=== PATIENT | female | born 1990 | race African-American/Black ===

== ENCOUNTER 2019-01-21 13:25 | Emergency (ER) | payer SELFPAY ==
[~2019-01-21] VITALS: Ht 180.3 cm; Wt 77.3 kg
[~2019-01-21 13:25] MED LIST: ALBUTEROL0.09 MG/A1 IH; AMOXICILLIN 50500 MG PO; BIRTH CONTROL; NEXIUM 20MG CAP20 MG PO; NO HOME MEDICATIONS; PHENERGAN W/CO120 ML PO; ZANTAC 150150 MG PO
[2019-01-21 13:35] VITALS: BP 117/56
[2019-01-21 13:48] VITALS: TEMP 96.9
[2019-01-21 14:16] LABS: COLLECTION METHOD CLEAN CATCH
[2019-01-21 14:25] LABS: MUCOUS Present /lpf; PH 5 (5-8); URINE APPEARANCE Cloudy; URINE BACTERIA None Seen /hpf; URINE BILIRUBIN Negative (NEGATIVE); URINE BLOOD Negative (NEGATIVE); URINE COLOR Yellow; URINE GLUCOSE Negative (NEGATIVE); URINE KETONE Trace (NEGATIVE); URINE LEUKOCYTE ESTERASE Trace (NEGATIVE); URINE NITRATE Negative (NEGATIVE); URINE PROTEIN(semi-quant) 2+ (NEGATIVE); URINE UROBILINOGEN Negative (NEGATIVE)
[2019-01-21 14:33] LABS: TRICYCLIC ANTIDEPRESS URINE NEGATIVE
[2019-01-21 14:51] LABS: BASO % 0.2 % (0.0-2.0); EOS # 0.1 (0.0-0.7); EOS % 1.9 % (0-4.0); GRAN # 2.7 (1.4-6.5); HEMATOCRIT 41.5 % (37.0-47.0); HEMOGLOBIN 13.4 g/dl (12.5-16.0); LYMPH # 1.2 (1.2-3.4); LYMPH % 28.1 % (20.0-51.0); MEAN CELL VOLUME 89 fl (80.0-100.0); MEAN CORPUSCULAR HEMOGLOBIN 29 pg (27.0-31.0); MEAN CORPUSCULAR HGB CONC 32 g/dl (33.0-37.0); MEAN PLATELET VOLUME 9.4 fl (7.4-10.4); MONO # 0.3 (0.1-0.6); MONO % 6.8 % (1.7-9.3); PLATELET COUNT 269 K/mm3 (130-400); RED BLOOD COUNT 4.69 M/mm3 (4.10-5.30); REDCELL DISTRIBUTION WIDTH-CV 14.7 % (11.5-14.5)
[2019-01-21 14:58] LABS: ALANINE AMINOTRANSFERASE 16 U/L (9-52); ALBUMIN 3.9 gm/dL (3.5-5.0); ALKALINE PHOSPHATASE 79 U/L (50-136); ANION GAP 8 mmol/L (7-16); AST,SGOT 23 U/L (15-37); BILIRUBIN,TOTAL 0.5 mg/dL (0.0-1.0); BLOOD UREA NITROGEN 12 mg/dL (7-17); CALCIUM 9.1 mg/dL (8.4-10.2); CARBON DIOXIDE 27 mmol/L (22-30); CHLORIDE 105 mmol/L (98-107); CREATININE, serum 0.85 (0.52-1.25); GLUCOSE 85 mg/dL (74-106); POTASSIUM 3.9 mmol/L (3.4-5.0); SODIUM 141 mmol/L (137-145); TOTAL PROTEIN 7.4 gm/dL (6.4-8.2)
[2019-01-21 15:00] LABS: C-REACTIVE PROTEIN < 0.5 mg/dL (0.0-0.9)
[2019-01-21 17:00] VITALS: PULSE 64
== END 2019-01-21 17:00 | disposition home or self-care (01) ==
LOC: COL.ER 13:25
PROVIDERS: Physician Assistant
DX: L50.9 Urticaria, unspecified (principal); F17.210 Nicotine dependence, cigarettes, uncomplicated; F15.10 Other stimulant abuse, uncomplicated
CPT/HCPCS: J7030

== ENCOUNTER 2019-09-26 16:45 | Emergency (ER) | payer SELFPAY ==
[~2019-09-26] VITALS: Ht 177.8 cm; Wt 81.8 kg
[2019-09-26 17:05] VITALS: BP 128/70
[2019-09-26] MEDS ORDERED: TAMIFLU 75MG75 MG PO (20:03)
[2019-09-26 20:13] VITALS: PULSE 107; TEMP 98.9
== END 2019-09-26 20:21 | disposition home or self-care (01) ==
LOC: COL.ER 16:45
DX: J10.1 Influenza due to other identified influenza virus with other respiratory manifestations (principal); F17.210 Nicotine dependence, cigarettes, uncomplicated

== ENCOUNTER 2020-01-17 23:10 | Emergency (ER) | payer SELFPAY ==
[~2020-01-17] VITALS: Ht 177.8 cm; Wt 79.5 kg
[~2020-01-17 23:10] MED LIST changes: +TAMIFLU 75MG75 MG PO
[2020-01-18 01:38] VITALS: BP 123/70; PULSE 77; TEMP 97.8
== END 2020-01-18 01:38 | disposition home or self-care (01) ==
LOC: COL.ER 23:10
DX: T78.1XXA Other adverse food reactions, not elsewhere classified, initial encounter (principal); F17.210 Nicotine dependence, cigarettes, uncomplicated

== ENCOUNTER 2020-07-10 18:20 | Emergency (ER) | payer OTHER ==
[~2020-07-10 18:20] MED LIST changes: +FLAGYL500 MG PO; +ZITHROMAX500 M2 PO
[2020-07-10 18:21] VITALS: TEMP 97.6
[2020-07-10 18:40] LABS: BASO % 0.2 % (0.0-2.0); EOS # 0.1 (0.0-0.7); EOS % 1.6 % (0-4.0); GRAN % 20.2 % (42.2-75.2); HEMATOCRIT 39.3 % (37.0-47.0); HEMOGLOBIN 12.6 g/dl (12.5-16.0); LYMPH # 3.7 (1.2-3.4); MEAN CELL VOLUME 89 fl (80.0-100.0); MEAN CORPUSCULAR HEMOGLOBIN 28 pg (27.0-31.0); MEAN CORPUSCULAR HGB CONC 32 g/dl (33.0-37.0); MEAN PLATELET VOLUME 9.3 fl (7.4-10.4); MONO # 0.2 (0.1-0.6); MONO % 4.8 % (1.7-9.3); PLATELET COUNT 255 K/mm3 (130-400); RED BLOOD COUNT 4.43 M/mm3 (4.10-5.30); REDCELL DISTRIBUTION WIDTH-CV 15.5 % (11.5-14.5)
[2020-07-10 18:45] LABS: PROTHROMBIN TIME 11.7 SECONDS (9.7-12.8)
[2020-07-10 18:59] LABS: ALANINE AMINOTRANSFERASE 18 U/L (4-34); ALBUMIN 3.7 gm/dL (3.5-5.0); ALKALINE PHOSPHATASE 65 U/L (50-136); ANION GAP 9 mmol/L (7-16); AST,SGOT 23 U/L (15-37); BILIRUBIN,TOTAL 0.2 mg/dL (0.0-1.0); BLOOD UREA NITROGEN 14 mg/dL (7-17); CALCIUM 8.7 mg/dL (8.4-10.2); CARBON DIOXIDE 23 mmol/L (22-30); CHLORIDE 105 mmol/L (98-107); CREATINE KINASE 173 U/L (30-135); CREATININE, serum 0.89 (0.52-1.25); GLUCOSE 109 mg/dL (74-106); LIPASE 116 U/L (23-300); POTASSIUM 3.6 mmol/L (3.4-5.0); SODIUM 137 mmol/L (137-145); TOTAL PROTEIN 6.8 gm/dL (6.4-8.2)
[2020-07-10 19:03] LABS: ACETAMINOPHEN < 10 ug/mL (10-30); ALCOHOL(ethanol),MEDICAL < 10 mg/dL; C-REACTIVE PROTEIN < 0.5 mg/dL (0.0-0.9); SALICYLATE < 1.0 mg/dL
[2020-07-10 19:08] LABS: COLLECTION METHOD CATHETER
[2020-07-10 19:12] LABS: TROPONIN-I < 0.012 ng/mL (0.000-0.035)
[2020-07-10 19:14] LABS: MUCOUS Present /lpf; PH 5 (5-8); SQUAMOUS EPITHELIAL 0-2 /hpf; URINE APPEARANCE Clear; URINE BACTERIA None Seen /hpf; URINE BILIRUBIN Negative (NEGATIVE); URINE BLOOD Negative (NEGATIVE); URINE COLOR Yellow; URINE GLUCOSE Negative (NEGATIVE); URINE KETONE Negative (NEGATIVE); URINE LEUKOCYTE ESTERASE Negative (NEGATIVE); URINE NITRATE Negative (NEGATIVE); URINE PROTEIN(semi-quant) 1+ (NEGATIVE); URINE RBC 0-2 /hpf; URINE UROBILINOGEN Negative (NEGATIVE)
[2020-07-10 19:21] LABS: TRICYCLIC ANTIDEPRESS URINE NEGATIVE
[2020-07-10 19:29] LABS: ARTERIAL BLD GAS O2 SATURATION 98.7 % (92-100); ARTERIAL BLD GAS TCO2 CT 24.8; ARTERIAL BLOOD GAS BASE EXCESS -2.2 (-2-2); ARTERIAL BLOOD GAS HCO3 23.4 meq/L (22-26); ARTERIAL BLOOD GAS PCO2 43.4 mmHg (35-45); ARTERIAL BLOOD GAS PO2 116.9 mmHg (80-100); ARTERIAL BLOOD GAS pH 7.35 (7.35-7.45)
[2020-07-10] MEDS ORDERED: EPIPEN 2-PAK1 MG/ML IM ×2 (20:52)
[2020-07-10 21:06] VITALS: BP 114/69; PULSE 89
== END 2020-07-10 21:12 | disposition home or self-care (01) ==
LOC: COL.ER 18:20
PROVIDERS: Emergency Medicine
DX: R41.82 Altered mental status, unspecified (principal); T40.1X1A Poisoning by heroin, accidental (unintentional), initial encounter; F17.200 Nicotine dependence, unspecified, uncomplicated; Z20.828 Contact with and (suspected) exposure to other viral communicable diseases; Z32.02 Encounter for pregnancy test, result negative; X58.XXXA Exposure to other specified factors, initial encounter
CPT/HCPCS: J1100; J1200

== ENCOUNTER 2020-07-19 23:39 | Emergency (ER) | payer OTHER ==
[~2020-07-19] VITALS: Ht 180.3 cm; Wt 75.0 kg
[~2020-07-19 23:39] MED LIST changes: +EPIPEN 2-PAK1 MG/ML IM
[2020-07-20] MEDS ORDERED: PREDNISONE20 MG PO (01:01)
[2020-07-20] MEDS ORDERED: PROAIR HFA0.09 MG/AC IH (01:01)
[2020-07-20 01:25] VITALS: BP 129/71; PULSE 82; TEMP 98.5
== END 2020-07-20 01:28 | disposition home or self-care (01) ==
LOC: COL.ER 23:39
DX: Z20.828 Contact with and (suspected) exposure to other viral communicable diseases (principal); F17.210 Nicotine dependence, cigarettes, uncomplicated
CPT/HCPCS: J7512

== ENCOUNTER 2020-08-19 01:43 | Emergency (ER) | payer OTHER ==
[~2020-08-19] VITALS: Ht 172.7 cm; Wt 63.6 kg
[~2020-08-19 01:43] MED LIST changes: +PREDNISONE20 MG PO; +PROAIR HFA0.09 MG/AC IH
[2020-08-19 01:55] VITALS: TEMP 97.7
[2020-08-19 02:48] VITALS: BP 124/78; PULSE 80
== END 2020-08-19 02:48 | disposition home or self-care (01) ==
LOC: COL.ER 01:43
DX: N89.9 Noninflammatory disorder of vagina, unspecified (principal); K13.29 Other disturbances of oral epithelium, including tongue; Z79.51 Long term (current) use of inhaled steroids

== ENCOUNTER 2021-08-04 18:11 | Emergency (ER) | payer SELFPAY ==
[2021-08-04 18:24] VITALS: BP 120/91; PULSE 112; TEMP 98.2
== END 2021-08-04 20:40 | disposition home or self-care (01) ==
LOC: COL.ER 18:11
DX: B34.9 Viral infection, unspecified (principal); F17.210 Nicotine dependence, cigarettes, uncomplicated; Z20.822 Contact with and (suspected) exposure to COVID-19